=== PATIENT | female | born 1985 | race Caucasian/White ===

== ENCOUNTER 2016-12-01 01:45 | Emergency (ER) | payer OTHER, SELFPAY ==
[2016-12-01] MEDS ORDERED: predniSONE 20 MG TAB As Ordered ONE (02:28)
[2016-12-01] MEDS ORDERED: AUGMENTIN 875 MG TAB As Ordered ONE (02:28)
[2016-12-01] MEDS ORDERED: traMADol 50 MG TAB As Ordered ONE ×2 (02:28→02:36)
--- NOTE | 2016-12-01 03:55 | EDDOCDS ---
Physician Documentation Name: Ginette Ames Age: 30 yrs Sex: Female : 1985 Arrival Date: 12/01/2016 Time: 01:45 Bed TR8 Private MD: Disposition: 12/01/16 02:24 Discharged to Home/Self Care. Impression: Acute maxillary sinusitis, Acute upper respiratory infections of multiple and unspecified sites, Cough. - Condition is Stable. - Discharge Instructions: Sinusitis, Adult, Cough, Adult. - Prescriptions for Augmentin 875- 125 mg Oral Tablet - take 1 tablet by ORAL route every 12 hours for 10 days; 20 tablet. Prednisone 20 mg Oral Tablet - take 1 tablet by ORAL route once daily for 5 days; 5 tablet. - Work Release Form - 2 day, Medication Reconciliation, Local Pharmacy Hours form. - Follow up: Emergency Department; When: As needed; Reason: Worsening of conditions. Follow up: Private Physician; When: Call to arrange an appointment; Reason: Wound/Symptom Recheck, Recheck today's complaints, Worsening of conditions, Continuance of care. - Problem is an ongoing problem. - Symptoms are unchanged. - Notes: May take tylenol or motrin as needed for the pain. Historical: - Allergies: No known drug Allergies; - Home Meds: 1. none - PMHx: none; - PSHx: none; - Social history: Smoking status: Patient states was never smoker of tobacco. No barriers to communication noted, The patient speaks fluent Pakistani. - Family history: Not pertinent. - : The pt / caregiver states he / she is not on anticoagulants. Home medication list is obtained from the patient. - Exposure Risk Screening:: None identified. 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 7 in. (170.18 cm) (R); Pain 6/10; 01:55 Body Mass Index 29.76 (86.18 kg, 170.18 cm) af2 MDM: 02:24 traMADol 50 mg PO once ordered. cc10 02:24 predniSONE 20 mg PO once; administer with food or milk ordered. cc10 02:24 Amoxicillin-Clavulanate 875 mg 1 tabs PO once ordered. [facility] 03:31 Financial registration complete[facility] Administered Medications: 02:30 Drug: traMADol 50 mg [tramadol 50 mg tablet (1 tabs)] Route: PO; kmg1 02:30 Drug: predniSONE 20 mg [prednisone 20 mg tablet (1 tabs)] Route: PO; [facility] [place]:30 Drug: Amoxicillin-Clavulanate 1 tabs [amoxicillin 875 mg-potassium clavulanate 125 mg kmg1 tablet (1 tabs)] Route: PO; Signatures: Kaila Huddleston, RN RN kmg1 Nato Stallworth, PA-C PAMarkellC [facility] [place] [facility] Nanda Drake,RN RN af2 MTDD
--- NOTE | 2016-12-01 03:55 | EDDOCDS ---
Nurse's Notes [facility] Name: Ginette Ames Age: 30 yrs Sex: Female : 1985 Arrival Date: 12/01/2016 Time: 01:45 Bed TR8 Private MD: Diagnosis: Acute maxillary sinusitis;Acute upper respiratory infections of multiple and unspecified sites;Cough Presentation: 12/01 01:56 Presenting complaint: Patient states: eyes watering, swollen throat, congested lungs. af2 states "my sinuses are on fire.". Adult Sepsis Screening: The patient does not have new or worsening altered mentation. Patient's respiratory rate is less than 22. Systolic blood pressure is greater than 100. Patient has a qSOFA score of 0- Negative Sepsis Screen. Suicide/Homicide risk assessment- the patient denies having any suicidal and/or homicidal ideations and does not present with any other emotional, behavioral or mental health complaints. Status: Patient is not a support services tech or dependent. Transition of care: patient was not received from another setting of care. 01:56 Acuity: RAFIA Level 4 af2 01:56 Method Of Arrival: Walkin/Carried/Asstd af2 Triage Assessment: 01:58 General: Appears in no apparent distress, comfortable, Behavior is appropriate for age, af2 cooperative. Pain: Location: right ear, left ear and nose Pain currently is 7 out of 10 on a pain scale. Pt Declines HIV testing. Respiratory: Airway is patent Respiratory effort is even, unlabored. Derm: Skin is normal. 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 none - PMHx: none; - PSHx: none; - Social history: Smoking status: Patient states was never smoker of tobacco. No barriers to communication noted, The patient speaks fluent Macedonian. - Family history: Not pertinent. - : The pt / caregiver states he / she is not on anticoagulants. Home medication list is obtained from the patient. - Exposure Risk Screening:: None identified. Screenin:59 Screening information is obtained from the patient. Fall risk: No risks identified. af2 Assistance ADL's: requires no assistance with activities of daily living. Abuse/DV Screen: The patient / caregiver reports he/she is: not in a situation that causes fear, pain or injury. Nutritional screening: No deficits noted. Advance Directives: There is no Power of Sketcher. home support is adequate. Assessment: 02:30 General: Appears in no apparent distress, comfortable, Behavior is appropriate for age, kmg1 cooperative, pleasant. Pain: Location: face and nose and left ear and right ear Pain currently is 6 out of 10 on a pain scale. Quality of pain is described as tender, throbbing. Neurological: Level of Consciousness is awake, alert. Respiratory: Airway is patent Respiratory effort is even, unlabored, Respiratory pattern is regular, symmetrical. Vital Signs: 01:55 BP 143 / 92 RA; Pulse 82; Resp 18 S; Temp 97.9(O); Pulse Ox 96% on R/A; Weight 86.18 kg af2 (R); Height 5 ft. 7 in. (170.18 cm) (R); Pain 6/10; 01:55 Body Mass Index 29.76 (86.18 kg, 170.18 cm) af2 Vitals: 01:55 Log In Time: December 01, 2016 at 01:43. af2 ED Course: 01:45 Patient visited by Sania Hurtado. gjb 01:45 Patient moved to Waiting gjb 01:57 Triage Initiated af2 01:59 The patient / caregiver is instructed regarding the plan of care and ED course. Patient af2 has correct armband on for positive identification. Placed in gown. 02:00 Patient visited by Nanda Drake RN. af2 02:00 Patient moved to Triage 1 af2 02:00 No IV's were initiated during this patient's visit. No procedures done that require af2 assistance. 02:20 Nato Stallworth PA-C is PHCP. cc10 02:20 Mauri Cottrell DO is Attending Physician. cc10 02:20 Patient visited by Nato Stallworth PA-C. cc10 02:20 Patient visited by Nato Stallworth PA-C. cc10 02:59 Patient moved to [facility] [place] Administered Medications: 02:30 Drug: traMADol 50 mg [tramadol 50 mg tablet (1 tabs)] Route: PO; kmg1 02:30 Drug: predniSONE 20 mg [prednisone 20 mg tablet (1 tabs)] Route: PO; kmg1 02:30 Drug: Amoxicillin-Clavulanate 1 tabs [amoxicillin 875 mg-potassium clavulanate 125 mg kmg1 tablet (1 tabs)] Route: PO; Order Results: There are currently no results for this order. Outcome: 02:24 Discharge ordered by Provider. cc10 02:30 Discharge Assessment: Patient awake, alert and oriented x 3. No cognitive and/or kmg1 functional deficits noted. Patient verbalized understanding of disposition instructions. Patient awake and alert. patient administered narcotics - yes. Pt provided with safe discharge. The following High Risk Discharge criteria are identified: None. Discharged to home ambulatory, with significant other. Condition: stable. Discharge instructions given to patient, Instructed on discharge instructions, follow up and referral plans. medication usage, Demonstrated understanding of instructions, medications, Pt was receptive of discharge instructions/ teaching. Prescriptions given X 2. No special radiology studies were completed. Property sent home with patient. 03:54 Patient left the ED. [facility] Signatures: Kaila Huddleston RN RN kmg1 Nato Stallworth, PA-C PA-C 10 Nanda Drake RN RN af2 Sania Hurtado MTDD
--- NOTE | 2016-12-03 04:54 | EDDOCDS ---
Physician Documentation [facility] Name: Ginette Ames Age: 30 yrs Sex: Female : 1985 Arrival Date: 12/01/2016 Time: 01:45 Bed TR8 Private MD: Disposition: 12/01/16 02:24 Discharged to Home/Self Care. Impression: Acute maxillary sinusitis, Acute upper respiratory infections of multiple and unspecified sites, Cough. - Condition is Stable. - Discharge Instructions: Sinusitis, Adult, Cough, Adult. - Prescriptions for Augmentin 875- 125 mg Oral Tablet - take 1 tablet by ORAL route every 12 hours for 10 days; 20 tablet. Prednisone 20 mg Oral Tablet - take 1 tablet by ORAL route once daily for 5 days; 5 tablet. - Work Release Form - 2 day, Medication Reconciliation, Local Pharmacy Hours form. - Follow up: Emergency Department; When: As needed; Reason: Worsening of conditions. Follow up: Private Physician; When: Call to arrange an appointment; Reason: Wound/Symptom Recheck, Recheck today's complaints, Worsening of conditions, Continuance of care. - Problem is an ongoing problem. - Symptoms are unchanged. - Notes: May take tylenol or motrin as needed for the pain. Historical: - Allergies: No known drug Allergies; - Home Meds: 1. none - PMHx: none; - PSHx: none; - Social history: Smoking status: Patient states was never smoker of tobacco. No barriers to communication noted, The patient speaks fluent Bolivian. - Family history: Not pertinent. - : The pt / caregiver states he / she is not on anticoagulants. Home medication list is obtained from the patient. - Exposure Risk Screening:: None identified. 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 7 in. (170.18 cm) (R); Pain 6/10; 01:55 Body Mass Index 29.76 (86.18 kg, 170.18 cm) af2 MDM: 02:24 traMADol 50 mg PO once ordered. cc10 02:24 predniSONE 20 mg PO once; administer with food or milk ordered. cc10 02:24 Amoxicillin-Clavulanate 875 mg 1 tabs PO once ordered. cc10 03:31 Financial registration complete. [facility] 13:20 T-Sheet-- Draft Copy was scanned into [employer] and attached to record. gb Administered Medications: 02:30 Drug: traMADol 50 mg [tramadol 50 mg tablet (1 tabs)] Route: PO; kmg1 02:30 Drug: predniSONE 20 mg [prednisone 20 mg tablet (1 tabs)] Route: PO; kmg1 02:30 Drug: Amoxicillin-Clavulanate 1 tabs [amoxicillin 875 mg-potassium clavulanate 125 mg kmg1 tablet (1 tabs)] Route: PO; Signatures: Kaila Huddleston, RN RN kmg1 Mony Evans, Reg Reg Nato Stallworth, PA-C PA-C cc10 [place] [facility] Nanda Drake RN RN af2 The chart was reviewed and I authenticate all verbal orders and agree with the evaluation and treatment provided.Attachments: 13:20 T-Sheet-- Draft Copy gb Chart Complete MTDD
--- NOTE | 2016-12-03 04:55 | EDDOCDS ---
Physician Documentation [facility] Name: Ginette Ames Age: 30 yrs Sex: Female : 1985 Arrival Date: 12/01/2016 Time: 01:45 Bed TR8 Private MD: Disposition: 12/01/16 02:24 Discharged to Home/Self Care. Impression: Acute maxillary sinusitis, Acute upper respiratory infections of multiple and unspecified sites, Cough. - Condition is Stable. - Discharge Instructions: Sinusitis, Adult, Cough, Adult. - Prescriptions for Augmentin 875- 125 mg Oral Tablet - take 1 tablet by ORAL route every 12 hours for 10 days; 20 tablet. Prednisone 20 mg Oral Tablet - take 1 tablet by ORAL route once daily for 5 days; 5 tablet. - Work Release Form - 2 day, Medication Reconciliation, Local Pharmacy Hours form. - Follow up: Emergency Department; When: As needed; Reason: Worsening of conditions. Follow up: Private Physician; When: Call to arrange an appointment; Reason: Wound/Symptom Recheck, Recheck today's complaints, Worsening of conditions, Continuance of care. - Problem is an ongoing problem. - Symptoms are unchanged. - Notes: May take tylenol or motrin as needed for the pain. Historical: - Allergies: No known drug Allergies; - Home Meds: 1. none - PMHx: none; - PSHx: none; - Social history: Smoking status: Patient states was never smoker of tobacco. No barriers to communication noted, The patient speaks fluent Montenegrin. - Family history: Not pertinent. - : The pt / caregiver states he / she is not on anticoagulants. Home medication list is obtained from the patient. - Exposure Risk Screening:: None identified. 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 7 in. (170.18 cm) (R); Pain 6/10; 01:55 Body Mass Index 29.76 (86.18 kg, 170.18 cm) af2 MDM: 02:24 traMADol 50 mg PO once ordered. cc10 02:24 predniSONE 20 mg PO once; administer with food or milk ordered. cc10 02:24 Amoxicillin-Clavulanate 875 mg 1 tabs PO once ordered. cc10 03:31 Financial registration complete. [facility] 13:20 T-Sheet-- Draft Copy was scanned into [employer] and attached to record. gb Administered Medications: 02:30 Drug: traMADol 50 mg [tramadol 50 mg tablet (1 tabs)] Route: PO; kmg1 02:30 Drug: predniSONE 20 mg [prednisone 20 mg tablet (1 tabs)] Route: PO; kmg1 02:30 Drug: Amoxicillin-Clavulanate 1 tabs [amoxicillin 875 mg-potassium clavulanate 125 mg kmg1 tablet (1 tabs)] Route: PO; Signatures: Kaila Huddleston, RN RN kmg1 Mony Evans, Reg Reg Nato Stallworth, PA-C PA-C cc10 [place] [facility] Nanda Drake RN RN af2 The chart was reviewed and I authenticate all verbal orders and agree with the evaluation and treatment provided.Attachments: 13:20 T-Sheet-- Draft Copy gb Chart Complete MTDD
--- NOTE | 2016-12-03 04:55 | EDDOCDS ---
Nurse's Notes [facility] Name: Ginette Ames Age: 30 yrs Sex: Female : 1985 Arrival Date: 12/01/2016 Time: 01:45 Bed TR8 Private MD: Diagnosis: Acute maxillary sinusitis;Acute upper respiratory infections of multiple and unspecified sites;Cough Presentation: 12/01 01:56 Presenting complaint: Patient states: eyes watering, swollen throat, congested lungs. af2 states "my sinuses are on fire.". Adult Sepsis Screening: The patient does not have new or worsening altered mentation. Patient's respiratory rate is less than 22. Systolic blood pressure is greater than 100. Patient has a qSOFA score of 0- Negative Sepsis Screen. Suicide/Homicide risk assessment- the patient denies having any suicidal and/or homicidal ideations and does not present with any other emotional, behavioral or mental health complaints. Status: Patient is not a guest services associate or dependent. Transition of care: patient was not received from another setting of care. 01:56 Acuity: RAFIA Level 4 af2 01:56 Method Of Arrival: Walkin/Carried/Asstd af2 Triage Assessment: 01:58 General: Appears in no apparent distress, comfortable, Behavior is appropriate for age, af2 cooperative. Pain: Location: right ear, left ear and nose Pain currently is 7 out of 10 on a pain scale. Pt Declines HIV testing. Respiratory: Airway is patent Respiratory effort is even, unlabored. Derm: Skin is normal. 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 none - PMHx: none; - PSHx: none; - Social history: Smoking status: Patient states was never smoker of tobacco. No barriers to communication noted, The patient speaks fluent Armenian. - Family history: Not pertinent. - : The pt / caregiver states he / she is not on anticoagulants. Home medication list is obtained from the patient. - Exposure Risk Screening:: None identified. Screenin:59 Screening information is obtained from the patient. Fall risk: No risks identified. af2 Assistance ADL's: requires no assistance with activities of daily living. Abuse/DV Screen: The patient / caregiver reports he/she is: not in a situation that causes fear, pain or injury. Nutritional screening: No deficits noted. Advance Directives: There is no Power of Drill Operator Automatic. home support is adequate. Assessment: 02:30 General: Appears in no apparent distress, comfortable, Behavior is appropriate for age, kmg1 cooperative, pleasant. Pain: Location: face and nose and left ear and right ear Pain currently is 6 out of 10 on a pain scale. Quality of pain is described as tender, throbbing. Neurological: Level of Consciousness is awake, alert. Respiratory: Airway is patent Respiratory effort is even, unlabored, Respiratory pattern is regular, symmetrical. Vital Signs: 01:55 BP 143 / 92 RA; Pulse 82; Resp 18 S; Temp 97.9(O); Pulse Ox 96% on R/A; Weight 86.18 kg af2 (R); Height 5 ft. 7 in. (170.18 cm) (R); Pain 6/10; 01:55 Body Mass Index 29.76 (86.18 kg, 170.18 cm) af2 Vitals: 01:55 Log In Time: December 01, 2016 at 01:43. af2 ED Course: 01:45 Patient visited by Sania Hurtado. gjb 01:45 Patient moved to Waiting gjb 01:57 Triage Initiated af2 01:59 The patient / caregiver is instructed regarding the plan of care and ED course. Patient af2 has correct armband on for positive identification. Placed in gown. 02:00 Patient visited by Nanda Drake RN. af2 02:00 Patient moved to Triage 1 af2 02:00 No IV's were initiated during this patient's visit. No procedures done that require af2 assistance. 02:20 Nato Stallworth PA-C is PHCP. cc10 02:20 Mauri Cottrell DO is Attending Physician. cc10 02:20 Patient visited by Nato Stallworth PA-C. cc10 02:20 Patient visited by Nato Stallworth PA-C. cc10 02:59 Patient moved to [place] [id number] 13:20 T-Sheet-- Draft Copy was scanned into [employer] and attached to record. gb Administered Medications: 02:30 Drug: traMADol 50 mg [tramadol 50 mg tablet (1 tabs)] Route: PO; kmg1 02:30 Drug: predniSONE 20 mg [prednisone 20 mg tablet (1 tabs)] Route: PO; kmg1 02:30 Drug: Amoxicillin-Clavulanate 1 tabs [amoxicillin 875 mg-potassium clavulanate 125 mg kmg1 tablet (1 tabs)] Route: PO; Order Results: There are currently no results for this order. Outcome: 02:24 Discharge ordered by Provider. cc10 02:30 Discharge Assessment: Patient awake, alert and oriented x 3. No cognitive and/or kmg1 functional deficits noted. Patient verbalized understanding of disposition instructions. Patient awake and alert. patient administered narcotics - yes. Pt provided with safe discharge. The following High Risk Discharge criteria are identified: None. Discharged to home ambulatory, with significant other. Condition: stable. Discharge instructions given to patient, Instructed on discharge instructions, follow up and referral plans. medication usage, Demonstrated understanding of instructions, medications, Pt was receptive of discharge instructions/ teaching. Prescriptions given X 2. No special radiology studies were completed. Property sent home with patient. 03:54 [facility]. [facility] [place] [place] Signatures: Kaila Huddleston, RN RN kmg1 Mony Evans, Reg Reg gb Nato Stallworth, PA-C PA-C cc10 Nanda DrakeRN RN af2 Sania Hurtado Chart Complete MTDD
== END 2016-12-01 03:54 | disposition home or self-care (01) ==
LOC: M ED 01:45
DX: J01.90 Acute sinusitis, unspecified (principal); R05 Cough